=== PATIENT | female | born 1975 | race Caucasian/White ===

== ENCOUNTER 2024-03-04 11:09 | Emergency (ER) | payer OTHER ==
[~2024-03-04] VITALS: Ht 160 cm; Wt 76.2 kg
[2024-03-04 11:21] VITALS: BP 125/75; PULSE 73; RESP 18; TEMP 97.6; O2SAT 100
[2024-03-04] MEDS ORDERED: [UNRECOGNIZED DRUG - CODE] PO (12:29)
[2024-03-04] MEDS ORDERED: OLOP2.5D7 OP (12:29)
[2024-03-04] MEDS: DEXAMETHASONE 10 MG/ML VIAL IM ONE (12:41)
== END 2024-03-04 13:01 | disposition home or self-care (01) ==
LOC: MED 11:09
DX: L30.8 Other specified dermatitis (principal); E03.9 Hypothyroidism, unspecified; Z79.899 Other long term (current) drug therapy
CPT/HCPCS: 96372; 99283; J1100